=== PATIENT | male | born 1965 | race Two or more races ===

== ENCOUNTER 2020-01-02 13:39 | Inpatient (IN) | payer OTHER ==
[~2020-01-02] VITALS: Ht 167.6 cm; Wt 108.9 kg
[2020-01-02] MEDS ORDERED: FORTAMET1000 MG PO (14:00)
[2020-01-02] MEDS ORDERED: GRALISE600 MG PO (14:00)
[2020-01-02] MEDS ORDERED: GLIMEPIRIDE4 M1 PO (14:01)
[2020-01-02] MEDS ORDERED: ZESTRIL20 MG PO (14:01)
[2020-01-02] MEDS ORDERED: HUMALOG100 UNIT/2 (14:01)
[2020-01-06] MEDS ORDERED: HUMALOG100 UNIT/2 SUBCUTANEO (16:56)
== END 2020-01-06 18:52 | disposition home or self-care (01) | DRG 682 ==
LOC: ER 13:39 → MEDI 21:26 → MEDJ 21:26 → MEDI 01-06 18:52
PROVIDERS: ADMIT Internal Medicine; ATTEND Internal Medicine
PROC: BF37ZZZ Magnetic Resonance Imaging (MRI) of Pancreas (ICD-10-PCS; 2020-01-02)
PROC: 4A033R1 Measurement of Arterial Saturation, Peripheral, Percutaneous Approach (ICD-10-PCS; 2020-01-02)
PROC: BW21ZZZ Computerized Tomography (CT Scan) of Abdomen and Pelvis (ICD-10-PCS; principal; 2020-01-03)
PROC: 05HY33Z Insertion of Infusion Device into Upper Vein, Percutaneous Approach (ICD-10-PCS; 2020-01-04)
DX: N17.8 Other acute kidney failure (principal); K85.90 Acute pancreatitis without necrosis or infection, unspecified; I10 Essential (primary) hypertension; E11.9 Type 2 diabetes mellitus without complications; E87.5 Hyperkalemia

== ENCOUNTER 2024-11-03 20:39 | Emergency (ER) | payer OTHER ==
[~2024-11-03] VITALS: Ht 170.2 cm; Wt 104.3 kg
[~2024-11-03 20:39] MED LIST: FORTAMET1000 MG PO; GLIMEPIRIDE4 M1 PO; GRALISE600 MG PO; HUMALOG100 UNIT/2; HUMALOG100 UNIT/2 SUBCUTANEO; ZESTRIL20 MG PO
[2024-11-03 21:43] LABS: BASO % 0.9 % (0.1-1.2); EOS # 0.14 (0.04-0.54); EOS % 2.2 % (0.7-7.0); HEMATOCRIT 37.2 % (40.1-51.0); HEMOGLOBIN 12.2 g/dL (13.7-17.5); LYMPH # 1.96 (1.18-3.74); LYMPH % 30.9 % (19.3-53.1); MEAN CORPUSCULAR HEMOGLOBIN 31.4 pg (25.6-32.2); MONO # 0.63 (0.24-0.82); MONO % 9.9 % (4.7-12.5); NEUT # 3.54 (1.56-6.13); NEUT % 55.8 % (34.0-71.1); PLATELET COUNT 243 K/uL (163-369); RED BLOOD COUNT 3.88 M/uL (4.63-6.08); RED CELL DISTRIBUTION WIDTH 12.9 % (11.6-14.4)
[2024-11-03 22:10] LABS: INR 1.01; PARTIAL THROMBOPLASTIN TIME 20.3 SECONDS (22.0-34.0)
[2024-11-03 22:36] LABS: ALBUMIN 3.8 gm/dL (3.4-5.0); BILIRUBIN TOTAL 0.45 mg/dL (0.3-1.2); CALCIUM 9.1 mg/dL (8.5-10.1); CREATININE SERUM 1.38 mg/dL (0.70-1.30); GFR 53.3; GLOBULINA 3.4 G/DL (2.4-3.5); POTASSIUM 3.98 mEq/L (3.5-5.1); TOTAL PROTEIN 7.2 gm/dL (6.4-8.2)
[2024-11-03 23:14] LABS: PH,URINE 5.5 (5.0-8.0); URINE APPEARANCE Clear; URINE BILIRRUBIN Negative (NEGATIVE); URINE BLOOD Negative; URINE COLOR Yellow; URINE KETONE Negative (NEGATIVE); URINE LEUKOCYTE Negative; URINE NITRATE Negative; URINE PROTEIN Negative (NEGATIVE); URINE UROBILINOGEN 0.2 E.U./dl
[2024-11-03 23:18] LABS: URINE BACTERIA 36.6 uL (0.0-1933); URINE EPITHELIAL CELLS 3.3 uL (0.0-38.8); URINE WBC 52.3 uL (0.0-23.2)
[2024-11-03] MEDS ORDERED: ORPHENADRINE CITRATE 30 MG/ML AMPUL IM ONE (23:45)
[2024-11-04 00:06] LABS: URINE GLUCOSE >=1000 MG/DL (NEGATIVE); URINE RBC 0.2 uL (0.0-20.8)
[2024-11-04] MEDS ORDERED: ORPHENADRINE CITRATE 30 MG/ML AMPUL ONE (00:20)
[2024-11-04] MEDS ORDERED: NORFLEX100MG PO (00:30)
== END 2024-11-04 00:42 | disposition home or self-care (01) ==
LOC: ER 20:39
PROVIDERS: General Practice
DX: R10.9 Unspecified abdominal pain (principal); N36.8 Other specified disorders of urethra; E11.9 Type 2 diabetes mellitus without complications; Z79.84 Long term (current) use of oral hypoglycemic drugs
CPT/HCPCS: 36415; 71045; 74176; 96372; 99284; J2360